=== PATIENT | male | born 1985 | race Two or more races ===

== ENCOUNTER 2017-06-03 13:27 | Emergency (ER) | payer SELFPAY ==
[~2017-06-03] VITALS: Ht 167.6 cm; Wt 95.3 kg
[2017-06-03 13:44] VITALS: BP 129/91
== END 2017-06-03 16:03 | disposition left against medical advice (07) ==
LOC: ER 13:27
DX: M25.571 Pain in right ankle and joints of right foot (principal); Z53.21 Procedure and treatment not carried out due to patient leaving prior to being seen by health care provider
CPT/HCPCS: 73610